=== PATIENT | female | born 1975 | race American Indian/Alaskan Native ===

== ENCOUNTER 2016-11-03 00:13 | Emergency (ER) | payer MEDICAID ==
[2016-11-03 01:18] VITALS: BP 101/62
[2016-11-03 01:50] LABS: Basophils % (Auto) 0.1 % (0.0-1.8); Eosinophils % (Auto) 0.9 % (0.0-4.3); Hematocrit 37.9 % (30.3-42.9); Hemoglobin 12.3 gm/dl (10.1-14.3); Mean Corpuscular HGB Conc 33 % (30-34); Mean Corpuscular Hemoglobin 26 pg (28-32); Mean Corpuscular Volume 81 fl (79-97); Platelet Count 156 K/mm3 (140-440); Red Blood Count 4.67 M/mm3 (3.65-5.03); Red Cell Distribution Width 13.9 % (13.2-15.2); White Blood Count 10.3 K/mm3 (4.5-11.0)
[2016-11-03 01:58] LABS: Anion Gap 18 mmol/L; Blood Urea Nitrogen 8 mg/dL (7-17); Carbon Dioxide 24 mmol/L (22-30); Chloride 98.5 mmol/L (98-107); Glucose 104 mg/dL (65-100); Potassium 4.1 mmol/L (3.6-5.0); Sodium 136 mmol/L (137-145)
[2016-11-03 02:40] LABS: Bacteria,Urine 1+ /HPF (Negative); Bilirubin,Urine NEG (Negative); Blood,Urine NEG (Negative); Ketones,Urine NEG (Negative); Leukocyte Esterase,Urine NEG (Negative); Nitrite,Urine NEG (Negative); Protein,Urine <15 mg/dL mg/dL (Negative); RBC,Urine < 1.0 /HPF (0.0-6.0); Urobilinogen,Urine < 2.0 mg/dL (<2.0); WBC,Urine < 1.0 /HPF (0.0-6.0)
== END 2016-11-03 04:42 | disposition left against medical advice (07) ==
LOC: ED 00:13
DX: R51 Headache (principal); R50.9 Fever, unspecified; Z53.21 Procedure and treatment not carried out due to patient leaving prior to being seen by health care provider
CPT/HCPCS: 36415; 80048; 81001; 81025; 85025

== ENCOUNTER 2017-03-15 08:22 | Day surgery (SDC) | payer MEDICAID ==
[~2017-03-15 08:22] MED LIST: METHERGINE IM ONE; SILVER NITRATE TP ONE
--- NOTE | 2017-03-15 09:20 | Anesthesia Day of Surgery ---
Anesthesia Day of Surgery - Day of Surgery Patient Examined: Yes Patient H&P Reviewed: Yes Patient is NPO: Yes
--- NOTE | 2017-03-15 09:20 | Anesthesia Consultation ---
Anesthesia Consult and Med Hx Date of service: 03/15/17 - Airway Anesthetic Teeth Evaluation: Good ROM Head & Neck: Adequate Mental/Hyoid Distance: Adequate Mallampati Class: Class II Intubation Access Assessment: Probably Good - Pulmonary Exam CTA: Yes - Cardiac Exam Cardiac Exam: RRR - Pre-Operative Health Status ASA Pre-Surgery Classification: ASA2 Proposed Anesthetic Plan: General - Pre-Anesthesia Comment Pre-Anesthesia Comments: Missed at 12 weeks - Pulmonary Hx Smoking: No Hx Asthma: No COPD: No - Cardiovascular System Hx Hypertension: No (gestational) Hx Heart Attack/AMI: No - Central Nervous System Hx Seizures: No CVA: No Hx Psychiatric Problems: No - Endocrine Hx Renal Disease: No Hx Liver Disease: No Hx Hypothyroidism: No Hx Hyperthyroidism: No - Hematic Hx Anemia: No Hx Sickle Cell Disease: No - Other Systems Hx Alcohol Use: No Hx Cancer: No - Additional Comments Anesthesia Medical History Comments: NAC
[2017-03-15] MEDS ORDERED: DIPRIVAN 10 MG/ML IV ONE (09:57)
[2017-03-15] MEDS ORDERED: SUBLIMAZE ONE (09:58)
[2017-03-15] MEDS ORDERED: XYLOCAINE MPF 2% ONE (09:58)
[2017-03-15] MEDS ORDERED: SILVER NITRATE TP ONE ×2 (09:59→10:38)
[2017-03-15] MEDS ORDERED: DECADRON ONE (09:59)
[2017-03-15] MEDS ORDERED: ZOFRAN ONE (09:59)
[2017-03-15] MEDS ORDERED: METHERGINE IM ONE (10:00)
[2017-03-15] MEDS ORDERED: LACTATED RINGERS 1,000 ML IV SCH (10:00)
[2017-03-15] MEDS ORDERED: PEPCID PO NR (10:00)
[2017-03-15] MEDS ORDERED: VERSED IV NR (10:00)
[2017-03-15] MEDS ORDERED: NACL 0.9% IR ONE (10:39)
--- NOTE | 2017-03-15 10:48 | Operative Report ---
Operative Report Operative Report: PREOPERATIVE DIAGNOSIS: Missed . POSTOPERATIVE DIAGNOSIS: Missed . PROCEDURE PERFORMED: Suction, dilation, and curettage. ANESTHESIA: Spinal. SURGEON: Dr. Bisi Yoon MD ESTIMATED BLOOD LOSS: 50 mL. COMPLICATIONS: None. FINDINGS: Products of conception consistent with a 6-week intrauterine . INDICATIONS: The patient is a 42-year-old female at 6 weeks by her last menstrual period and 6 weeks by an ultrasound today in the clinic who presents for scheduled surgery. She had repeat US yesterday verified missed . . No heart tones were visible. Findings were discussed with the patient and options including surgical management via dilation and curettage versus management with misoprostol versus expected management were discussed with the patient. After discussion of these options, the patient opted for a suction, dilation, and curettage. The patient was described to the patient in detail including risks of infection, bleeding, injury to surrounding organs including risk of perforation. Informed consent was obtained prior to proceeding with the procedure. PROCEDURE NOTE: The patient was taken to the operating room where spinal anesthesia was administered without difficulty. The patient was prepped and draped in usual sterile fashion in lithotomy position. A weighted speculum was placed. The anterior lip of the cervix was grasped with a single tooth tenaculum. At this time, a 8-mm suction curettage was advanced into the uterine cavity without difficulty and was used to suction contents of the uterus. Following removal of the products of conception, a sharp curette was advanced into the uterine cavity and was used to scrape the four sanders of the uterus until a gritty texture was noted. At this time, the suction curette was advanced one additional time to suction any remaining products. All instruments were removed. Hemostasis was visualized. The patient was stable at the completion of the procedure. Sponge, lap, and instrument counts were correct.
[2017-03-15] MEDS ORDERED: DILAUDID IV ONE (12:09)
[2017-03-15 13:00] VITALS: BP 106/55
--- NOTE | 2017-03-15 17:35 | Post Anesthesia Evaluation ---
- Post Anesthesia Evaluation Patient Participated: Yes Airway Patent: Yes Stable Respiratory Function: Yes Nausea/Vomiting: No Temp > 96.8F: Yes Pain Manageable: Yes Adequeate Hydration: Yes Anesthesia Complications: No
== END 2017-03-15 12:55 | disposition home or self-care (01) ==
LOC: OR 08:22
PROVIDERS: ATTEND Obstetrics & Gynecology
DX: O02.1 Missed abortion (principal); G43.909 Migraine, unspecified, not intractable, without status migrainosus; Z79.899 Other long term (current) drug therapy; Z86.19 Personal history of other infectious and parasitic diseases
CPT/HCPCS: 59820; 86900; 86901; 88305; J1100; J1170; J2250; J2405; J2590; J2704; J3010; J7120; J2210

== ENCOUNTER 2017-03-25 06:00 | Emergency (ER) | payer MEDICAID ==
[2017-03-25 07:20] LABS: Basophils % (Auto) 0.3 % (0.0-1.8); Eosinophils % (Auto) 2.6 % (0.0-4.3); Hematocrit 35.3 % (30.3-42.9); Hemoglobin 11.4 gm/dl (10.1-14.3); Mean Corpuscular HGB Conc 32 % (30-34); Mean Corpuscular Hemoglobin 27 pg (28-32); Mean Corpuscular Volume 82 fl (79-97); Platelet Count 171 K/mm3 (140-440); Red Blood Count 4.29 M/mm3 (3.65-5.03); Red Cell Distribution Width 13.9 % (13.2-15.2); White Blood Count 5.9 K/mm3 (4.5-11.0)
[2017-03-25 07:36] LABS: Anion Gap 16 mmol/L; BUN/Creatinine Ratio 18.75; Blood Urea Nitrogen 15 mg/dL (7-17); Calcium 8.8 mg/dL (8.4-10.2); Carbon Dioxide 26 mmol/L (22-30); Chloride 101.4 mmol/L (98-107); Glucose 123 mg/dL (65-100); Potassium 3.6 mmol/L (3.6-5.0); Sodium 140 mmol/L (137-145)
--- NOTE | 2017-03-25 08:49 | Emergency Department Report ---
ED Chest Pain HPI - General Chief Complaint: Chest Pain Stated Complaint: CP; DIZZINESS Time Seen by Provider: 03/25/17 08:49 Source: patient, family Mode of arrival: Ambulatory Limitations: No Limitations - History of Present Illness Initial Comments: Patient here reports that she awoken this morning with sudden onset of pain she says she is having an pain to her mid chest area, feels like her head is spinning, chills and nausea. Patient says she had a D&C on 03/14/[address] Bisi Yoon. She said her pain is 10 out of 10 and feels aching pain. Denies any chest trauma. Patient has a history of gestational diabetes, migraine headache and gestational hypertension. She also had miscarriage 1 with 2 normal vaginal delivery. Denies any back or abdominal pain. Denies any urinary burning frequency or urgency. Denies any vomiting or diarrhea. Patient denies any shortness of breath. Denies any swelling to her extremities. Denies any history of cardiac disease. Pain is intermittent. She did not take any rpyr-uve-flzyctf medication for pain. MD Complaint: chest pain, other (nausea, head spinning and chills.) -: This morning Onset: awoke with symptoms Pain Location: epigastric Pain Radiation: none Severity: severe Severity scale (0 -10): 10 Quality: aching Consistency: intermittent Improves With: nothing Worsens With: nothing Context: other (unknown) re: nausea. denies: vomting, diaphoresis, dyspnea, sense of impending doom Other Symptoms: other (nausea, lightheadedness and chills). denies: cough, fever, syncope, rash, acid taste in mouth, leg swelling, palpitations, burping Treatments Prior to Arrival: none Aspirin use within the Past 7 Days: (0) No - Related Data On Oral Contraceptives: No Previous Rx's Medication Instructions Recorded Last Taken Type Ibuprofen [Motrin] 600 mg PO Q8H PRN #30 tablet 03/15/17 Unknown Rx oxyCODONE /ACETAMINOPHEN [Percocet 1 tab PO Q6HR PRN #30 tablet 03/15/17 Unknown Rx 5/325] Promethazine [Phenergan TAB] 25 mg PO Q8HR PRN #15 tab 03/25/17 Unknown Rx Allergies Allergy/AdvReac Type Severity Reaction Status Date / Time No Known Allergies Allergy Verified 03/14/17 10:43 Heart Score - HEART Score History: Slightly suspicious EKG: Non-specific Age: < 45 Risk factors: No known risk factors Troponin: < normal limit HEART Score: 1 - Critical Actions Critical Actions: 0-3 pts:0.9-1.7%risk of adverse cardiac event.Candidate for discharge ED Review of Systems ROS: Stated complaint: CP; DIZZINESS Other details as noted in HPI Comment: All other systems reviewed and negative Constitutional: chills. denies: diaphoresis, fever, malaise, weakness Eyes: denies: eye pain, eye discharge, vision change ENT: denies: ear pain, throat pain, congestion Respiratory: no symptoms reported Cardiovascular: chest pain. denies: palpitations, dyspnea on exertion, edema, syncope, paroxysmal nocturnal dyspnea Gastrointestinal: nausea. denies: abdominal pain, vomiting, diarrhea, constipation, hematemesis, melena, hematochezia Genitourinary: denies: urgency, dysuria, frequency, hematuria, discharge, abnormal menses, dyspareunia Musculoskeletal: denies: back pain, joint swelling, arthralgia, myalgia Skin: denies: rash Neurological: vertigo. denies: headache, weakness, numbness, paresthesias, confusion, abnormal gait Psychiatric: anxiety ED Past Medical Hx - Past Medical History Previous Medical History?: Yes Hx Hypertension: (gestational) Hx Heart Attack/AMI: No Hx Diabetes: Yes (hx gestational diabetes) Hx Deep Vein Thrombosis: No Hx Liver Disease: No Hx Renal Disease: No Hx Sickle Cell Disease: No Hx Headaches / Migraines: Yes (migraines) Hx Seizures: No Hx Asthma: No Hx COPD: No Hx Tuberculosis: No Hx HIV: No Additional medical history: Vaginal delivery X 2, Miscarriage x 1 - Surgical History Past Surgical History?: Yes Additional Surgical History: miscarriage x 1 - Family History Family history: hypertension - Social History Smoking Status: Never Smoker Substance Use Type: None Other Social History: lives with family - Medications Home Medications: Home Medications Medication Instructions Recorded Confirmed Last Taken Type Ibuprofen [Motrin] 600 mg PO Q8H PRN #30 tablet 03/15/17 Unknown Rx oxyCODONE /ACETAMINOPHEN [Percocet 1 tab PO Q6HR PRN #30 tablet 03/15/17 Unknown Rx 5/325] Promethazine [Phenergan TAB] 25 mg PO Q8HR PRN #15 tab 03/25/17 Unknown Rx ED Physical Exam - General Limitations: No Limitations General appearance: alert, in no apparent distress - Head Head exam: Present: atraumatic, normocephalic, normal inspection - Eye Eye exam: Present: normal appearance, PERRL, EOMI. Absent: scleral icterus, conjunctival injection, nystagmus, periorbital swelling, periorbital tenderness Pupils: Present: normal accommodation - ENT ENT exam: Present: normal orophraynx, mucous membranes dry, TM's normal bilaterally, normal external ear exam. Absent: mucous membranes moist - Neck Neck exam: Present: normal inspection, full ROM. Absent: tenderness, meningismus, lymphadenopathy - Respiratory Respiratory exam: Present: normal lung sounds bilaterally. Absent: respiratory distress, wheezes, rales, rhonchi, stridor, chest wall tenderness, accessory muscle use, decreased breath sounds, prolonged expiratory - Cardiovascular Cardiovascular Exam: Present: normal rhythm, tachycardia, normal heart sounds. Absent: systolic murmur, diastolic murmur, JVD, S3, S4 - GI/Abdominal GI/Abdominal exam: Present: soft, normal bowel sounds. Absent: distended, tenderness, guarding, rebound, rigid, hyperactive bowel sounds, hypoactive bowel sounds, organomegaly, mass, bruit, pulsatile mass, hernia - Extremities Exam Extremities exam: Present: normal inspection, full ROM, normal capillary refill. Absent: tenderness, pedal edema, joint swelling, calf tenderness - Back Exam Back exam: Present: normal inspection, full ROM. Absent: tenderness, CVA tenderness (R), CVA tenderness (L), muscle spasm, paraspinal tenderness, vertebral tenderness, rash noted - Neurological Exam Neurological exam: Present: alert, oriented X3, normal gait, reflexes normal. Absent: motor sensory deficit - Expanded Neurological Exam Expanded Neurological exam: Absent: innattentive, memory loss-remote event, memory loss- recent event, ataxia, receptive aphasia, expressive aphasia, total aphasia, tremor, protecting the airway Patient oriented to: Present: person, place, time Speech: Present: fluid speech Cranial nerves: EOM's Intact: Normal, Gag Reflex: Normal, Tongue Deviation: Normal, Nystagmus: Normal, Facial Sensation: Normal Cerebellar function: Romberg: Normal Upper motor neuron: Pronator Drift: Normal, Sensory Extinction: Normal Sensory exam: Upper Extremity Light Touch: Normal, Upper Extremity Temperature: Normal, UE 2 Point Discrimination: Normal, Lower Extremity Light Touch: Normal, Lower Extremity Temperature: Normal, LE 2 Point Discrimination: Normal Motor strength exam: RUE: 5, LUE: 5, RLE: 5, LLE: 5 DTR: bicep (R): 2+, bicep (L): 2+, tricep (R): 2+, tricep (L): 2+, knee (R): 2+ , knee (L): 2+, ankle (R): 2+, ankle (L): 2+ Best Eye Response (Banks): (4) open spontaneously Best Motor Response (Amos): (6) obeys commands Best Verbal Response (Amos): (5) oriented Amos Total: 15 - Psychiatric Psychiatric exam: Present: depressed (from previous miscarriage), anxious. Absent: agitated, flat affect, manic, homicidal ideation, suicidal ideation - Skin Skin exam: Present: warm, dry, intact, normal color. Absent: rash ED Course Vital Signs 03/25/17 06:25 Temperature 98 F Pulse Rate 101 H Respiratory 16 Rate Blood Pressure 135/71 Blood Pressure 135/71 [Left] O2 Sat by Pulse 100 Oximetry Vital Signs 03/25/17 03/25/17 06:25 12:12 Temperature 98 F Pulse Rate 101 H 64 Respiratory 16 16 Rate Blood Pressure 135/71 Blood Pressure 135/71 106/54 [Left] O2 Sat by Pulse 100 100 Oximetry - Reevaluation(s) Reevaluation #1: 03/25/17 11:48 stable throughout ED stay. She given normal saline 1 L and Zofran 4 mg IV with positive relief of nausea. She has no chest pain at present and says she is feeling better and ready to go. Pt was orally challenged in the emergency room and tolerated 2 cups of cranberry juice 03/25/17 11:52 03/25/17 11:52 SHABBIR score - Shabbir Score Age > 65: (0) No Aspirin use within the Past 7 Days: (0) No 3 or more CAD Risk Factors: (0) No 2 or more Angina events in past 24 hrs: (0) No Known CAD with more than 50% Stenosis: (0) No Elevated Cardiac Markers: (0) No ST Deviation Greater than 0.5mm: (0) No SHABBIR Score: 0 ED Medical Decision Making - Lab Data Result diagrams: 03/25/17 06:40 03/25/17 06:40 Lab Results 03/25/17 03/25/17 03/25/17 Range/Units 06:14 06:40 06:40 WBC 5.9 (4.5-11.0) K/mm3 RBC 4.29 (3.65-5.03) M/mm3 Hgb 11.4 (10.1-14.3) gm/dl Hct 35.3 (30.3-42.9) % MCV 82 (79-97) fl MCH 27 L (28-32) pg MCHC 32 (30-34) % RDW 13.9 (13.2-15.2) % Plt Count 171 (140-440) K/mm3 Lymph % (Auto) 39.2 H (13.4-35.0) % [place] % (Auto) 8.6 H (0.0-7.3) % Eos % (Auto) 2.6 (0.0-4.3) % Baso % (Auto) 0.3 (0.0-1.8) % Lymph # 2.3 (1.2-5.4) K/mm3 [place] # 0.5 (0.0-0.8) K/mm3 Eos # 0.2 (0.0-0.4) K/mm3 Baso # 0.0 (0.0-0.1) K/mm3 Seg Neutrophils % 49.3 (40.0-70.0) % Seg Neutrophils # 2.9 (1.8-7.7) K/mm3 Sodium 140 (137-145) mmol/L Potassium 3.6 (3.6-5.0) mmol/L Chloride 101.4 (98-107) mmol/L Carbon Dioxide 26 (22-30) mmol/L Anion Gap 16 mmol/L BUN 15 (7-17) mg/dL Creatinine 0.8 (0.7-1.2) mg/dL Estimated GFR > 60 ml/min BUN/Creatinine Ratio 18.75 % Glucose 123 H (65-100) mg/dL POC Glucose 116 H (70-105) Calcium 8.8 (8.4-10.2) mg/dL Troponin T < 0.010 (0.00-0.029) ng/mL HCG, Qual (Negative) HCG, Quant (0-4) mIU/mL Urine Color (Yellow) Urine Turbidity (Clear) Urine pH (5.0-7.0) Ur Specific [place] (1.003-1.030) Urine Protein (Negative) mg/dL Urine Glucose (UA) (Negative) mg/dL Urine Ketones (Negative) mg/dL Urine Blood (Negative) Urine Nitrite (Negative) Urine Bilirubin (Negative) Urine Urobilinogen (<2.0) mg/dL Ur Leukocyte Esterase (Negative) Urine WBC (Auto) (0.0-6.0) /HPF Urine RBC (Auto) (0.0-6.0) /HPF U Epithel Cells (Auto) (0-13.0) /HPF 03/25/17 03/25/17 03/25/17 Range/Units 06:40 Unknown Unknown WBC (4.5-11.0) K/mm3 RBC (3.65-5.03) M/mm3 Hgb (10.1-14.3) gm/dl Hct (30.3-42.9) % MCV (79-97) fl MCH (28-32) pg MCHC (30-34) % RDW (13.2-15.2) % Plt Count (140-440) K/mm3 Lymph % (Auto) (13.4-35.0) % [place] % (Auto) (0.0-7.3) % Eos % (Auto) (0.0-4.3) % Baso % (Auto) (0.0-1.8) % Lymph # (1.2-5.4) K/mm3 [place] # (0.0-0.8) K/mm3 Eos # (0.0-0.4) K/mm3 Baso # (0.0-0.1) K/mm3 Seg Neutrophils % (40.0-70.0) % Seg Neutrophils # (1.8-7.7) K/mm3 Sodium (137-145) mmol/L Potassium (3.6-5.0) mmol/L Chloride (98-107) mmol/L Carbon Dioxide (22-30) mmol/L Anion Gap mmol/L BUN (7-17) mg/dL Creatinine (0.7-1.2) mg/dL Estimated GFR ml/min BUN/Creatinine Ratio % Glucose (65-100) mg/dL POC Glucose (70-105) Calcium (8.4-10.2) mg/dL Troponin T < 0.010 (0.00-0.029) ng/mL HCG, Qual Positive (Negative) HCG, Quant (0-4) mIU/mL Urine Color Yellow (Yellow) Urine Turbidity Clear (Clear) Urine pH 7.0 (5.0-7.0) Ur Specific [place] 1.011 (1.003-1.030) Urine Protein <15 mg/dl (Negative) mg/dL Urine Glucose (UA) Neg (Negative) mg/dL Urine Ketones Neg (Negative) mg/dL Urine Blood Neg (Negative) Urine Nitrite Neg (Negative) Urine Bilirubin Neg (Negative) Urine Urobilinogen < 2.0 (<2.0) mg/dL Ur Leukocyte Esterase Neg (Negative) Urine WBC (Auto) < 1.0 (0.0-6.0) /HPF Urine RBC (Auto) 1.0 (0.0-6.0) /HPF U Epithel Cells (Auto) 5.0 (0-13.0) /HPF 03/25/17 Range/Units Unknown WBC (4.5-11.0) K/mm3 RBC (3.65-5.03) M/mm3 Hgb (10.1-14.3) gm/dl Hct (30.3-42.9) % MCV (79-97) fl MCH (28-32) pg MCHC (30-34) % RDW (13.2-15.2) % Plt Count (140-440) K/mm3 Lymph % (Auto) (13.4-35.0) % [place] % (Auto) (0.0-7.3) % Eos % (Auto) (0.0-4.3) % Baso % (Auto) (0.0-1.8) % Lymph # (1.2-5.4) K/mm3 [place] # (0.0-0.8) K/mm3 Eos # (0.0-0.4) K/mm3 Baso # (0.0-0.1) K/mm3 Seg Neutrophils % (40.0-70.0) % Seg Neutrophils # (1.8-7.7) K/mm3 Sodium (137-145) mmol/L Potassium (3.6-5.0) mmol/L Chloride (98-107) mmol/L Carbon Dioxide (22-30) mmol/L Anion Gap mmol/L BUN (7-17) mg/dL Creatinine (0.7-1.2) mg/dL Estimated GFR ml/min BUN/Creatinine Ratio % Glucose (65-100) mg/dL POC Glucose (70-105) Calcium (8.4-10.2) mg/dL Troponin T (0.00-0.029) ng/mL HCG, Qual (Negative) HCG, Quant 11.99 H (0-4) mIU/mL Urine Color (Yellow) Urine Turbidity (Clear) Urine pH (5.0-7.0) Ur Specific [place] (1.003-1.030) Urine Protein (Negative) mg/dL Urine Glucose (UA) (Negative) mg/dL Urine Ketones (Negative) mg/dL Urine Blood (Negative) Urine Nitrite (Negative) Urine Bilirubin (Negative) Urine Urobilinogen (<2.0) mg/dL Ur Leukocyte Esterase (Negative) Urine WBC (Auto) (0.0-6.0) /HPF Urine RBC (Auto) (0.0-6.0) /HPF U Epithel Cells (Auto) (0-13.0) /HPF - EKG Data -: EKG Interpreted by Me (Attending) Rate: tachycardia - EKG Data When compared to previous EKG there are: no significant change (09/12/2012) Interpretation: no acute changes, nonspecific ST-T wave christine (ST @ 104) - Radiology Data Radiology results: report reviewed Chest x-ray revealed no acute findings. - Medical Decision Making ED course: Pt here complaining of mid chest pain that feels achy without any history of heart disease. Her cardiac score is low and SHABBIR score is at 0. GEN had a D&C 10 days ago that was done by Dr. Bisi Yoon and a test qualitative came back positive quantitative is at 11. Patient test is positive because of recent . She said her was at 12 weeks. She denies any vaginal bleeding or discharge. Denies any abdominal pain or back pain. Denies any urinary burning frequency or urgency. Is still positive due to lingering hormone from recent with miscarriage and D&C. Patient had CBC done which was normal, test positive, quantitative hCG at 11. BMP is stable. Urinalysis is negative for any infection. Patient given 1 L of IV fluid and 4 mg of Zofran. Upon reevaluation, patient says she is feeling better. She has no nausea, no chest pain and no dizziness. I discussed the patient and her lab results, diagnosis and treatment plan and she is in agreement and voice understanding. Patient to follow-up with her [employer] [facility] in the next 1-2 days and I instructed her to call to schedule an appointment. Patient also with anxiety due to recent loss of . She denies any depression or any suicidal or homicidal ideation. Patient will follow up with her primary care physician and her [employer] [facility] and will call tomorrow to schedule an appointment. Her EKG revealed that she had sinus tachycardia at [address] abnormality when compared to EKG in 2013. No significant changes. 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 Patient discharged home a prescription for Phenergan and Motrin. Patient with diagnosis of atypical chest pain, nausea alone in adult, recent history miscarriage and D&C with positive hCG which is the result of recent ., dizziness which has resolved. Critical care attestation.: If time is entered above; I have spent that time in minutes in the direct care of this critically ill patient, excluding procedure time. ED Disposition Clinical Impression: Atypical chest pain, Nausea alone, Dizziness, H/O demise, not currently , Anxiety disorder due to medical condition Disposition: DC-01 TO HOME OR SELFCARE Is pt being admited?: No Does the pt Need Aspirin: No Condition: Stable Instructions: Chest Pain (ED), Dizziness (ED), Acute Nausea and Vomiting (ED) Additional Instructions: Please follow-up with your [facility] [facility] in 1-2 days call to schedule an appointment. Her hormone is still elevated because you had recent with miscarriage and D&C. This is not abnormal. Please follow-up with cardiology regarding chest pain Follow up with primary care physician and one to 2 days. You can take Phenergan for nausea but please do not drive or operate heavy machinery while doing this that this medication causes drowsiness If your symptoms return, please return to the emergency room [facility] otherwise follow-up with primary care doctor increase her fluid intake to 2-3 L of fluid per day. Prescriptions: Promethazine [Phenergan TAB] 25 mg PO Q8HR PRN #15 tab PRN Reason: Nausea Referrals: PRIMARY CARE, [Primary Care Provider] - 03/27/17 TONIO NAIR MD [Staff Physician] - 03/27/17 Forms: Work/School Release Form(ED), Accompanied Note
[2017-03-25] MEDS ORDERED: ZOFRAN IV ONE (08:55)
[2017-03-25] MEDS ORDERED: NACL 0.9% 1000 ML 1,000 ML IV ONE (08:55)
--- NOTE | 2017-03-25 10:05 | XRay Report ---
ROUTINE CHEST, TWO VIEWS: HISTORY: chest pain. The trachea, heart, mediastinal contour, lung bueno and bony thorax are unremarkable. IMPRESSION: Unremarkable chest x-ray.
[2017-03-25 10:15] LABS: Bilirubin,Urine NEG (Negative); Blood,Urine NEG (Negative); Ketones,Urine NEG (Negative); Leukocyte Esterase,Urine NEG (Negative); Nitrite,Urine NEG (Negative); Protein,Urine <15 mg/dL mg/dL (Negative); Urobilinogen,Urine < 2.0 mg/dL (<2.0); WBC,Urine < 1.0 /HPF (0.0-6.0)
[2017-03-25 12:12] VITALS: BP 106/54
== END 2017-03-25 12:18 | disposition home or self-care (01) ==
LOC: ED 06:00
DX: R07.89 Other chest pain (principal); R11.0 Nausea; R42 Dizziness and giddiness; F41.9 Anxiety disorder, unspecified; G43.909 Migraine, unspecified, not intractable, without status migrainosus
CPT/HCPCS: 36415; 71020; 80048; 81001; 82962; 84484; 84702; 84703; 85025; 93005; 93010; 96361; 96374; 99284; J2405; J7030

== ENCOUNTER 2018-01-31 12:21 | Inpatient (IN) | payer MEDICAID ==
[2018-01-31] MEDS ORDERED: ZOFRAN IV PRN (12:30)
[2018-01-31] MEDS ORDERED: XYLOCAINE 2% INFILTRATI ONE (12:30)
[2018-01-31] MEDS ORDERED: BRETHINE SUB-Q PRN (12:30)
[2018-01-31] MEDS ORDERED: MINERAL OIL PO PRN (12:30)
[2018-01-31] MEDS ORDERED: ePHEDrine SULFATE IV PRN (12:30)
--- NOTE | 2018-01-31 12:52 | History and Physical Report ---
History of Present Illness Date of examination: 01/31/18 (Pt presents with PROM clear fluid) Date of admission: 01/31/18 12:21 Chief complaint: leaking fluid all morning History of present illness: EDC Confirmation: 02/24/2018 Gestational Age: 16 4/7 weeks Past History : 6 Term Births: 3 Living Children: 3 Para: 3 Spont. Ab: 2 # 1 Delivery date: 02/18/1998 Weeks Gestation: 40 Delivery type: Delivery location: [facility] Sex: Male weight: 3.5kg # 2 Delivery date: 09/04/2010 Weeks Gestation: 40 Delivery type: Delivery location: [facility] Sex: Female weight: 7.5lbs # 3 Delivery date: 11/08/2013 Weeks Gestation: 40 Delivery type: Delivery location: [facility] Infant Sex: Female weight: 8lbs # 4 Delivery date: 09/2016 Weeks Gestation: 12 Delivery type: SAB # 5 Delivery date: 06/2017 Delivery type: SAB Family History Summary: Father (biol.) - Has Family History of Diabetes - Entered On: 09/13/2017 Social History: Patient is single Smoking History: Patient has never smoked. Risk Factors: Smoked Tobacco Use: Never smoker Smokeless Tobacco Use: Never Passive smoke exposure: no Drug use: no HIV high-risk behavior: no Alcohol use: no Exercise: no Seatbelt use: 100 % Family History Risk Factors: Family History of CT in females < 65 years old: no Dietary Counseling: pn yes Past Medical History: Headaches(Migraines); only taking tylenol. Past Surgical History: negative Past Medical History Anesthesia Complications: negative Anemia: negative Autoimmune Disorder: negative Bleeding Disorder: negative Blood Transfusions: negative Breast Disease: negative Diabetes: negative Heart Disease: negative Hypertension: negative Hepatitis/Liver Disease: negative Kidney Disease/UTI: negative Neurologic/Epilepsy/Migraines: negative Phlebitis/Varicosities: negative Psychiatric: negative Pulmonary Disease/Asthma: negative Thyroid Disease: negative Hospitalizations: negative Surgery (Non-renal case manager): negative Abnormal PAP: negative YEVGENIY Exposure: negative Infertility: negative Uterine Anomaly: negative Uterine Surgery (not C/S): negative Other Gynecologic Problems: negative Social Hx: Patient is single Smoking History: Patient has never smoked. Infection History Hx of STD: none HIV Risk Eval: no Personal hx. of genital herpes: no Varicella/Chicken Pox Status: Immunized TB Risk: no Genetic History ADVANCED MATERNAL AGE Congenital Heart Defect: Mom: no Dad: unknown Angel Disease: Mom: no Dad: unknown Thalassemia Mom: no Dad: unknown Neural Tube Defect Mom: no Dad: unknown Down's Syndrome Mom: no Dad: unknown Mika-Sachs Mom: no Dad: unknown Sickle Cell Disease/Trait Mom: no Dad: unknown Hemophilia Mom: no Dad: unknown Muscular Dystrophy Mom: no Dad: unknown Cystic Fibrosis Mom: no Dad: unknown Kylee Chorea Mom: no Dad: unknown Mental Retardation Mom: no Dad: unknown Fragile X Mom: no Dad: unknown Other Genetic/Chromosomal Disorder Mom: no Dad: unknown Child w/other defect Mom: no Dad: unknown Enviromental Exposures Xray Exposure: no Medication, drug, or alcohol use since LMP: no Chemical/Other Exposure: no Exposure to Cat Liter: no Hx of Parvovirus (Fifth Disease): no Occupational Exposure to Children: none FALSECurrent Allergies: No known allergies Past History - Obstetrical History Expected Date of Delivery: 02/24/18 Actual Gestation: 36 Week(s) 4 Day(s) : 6 Para: 3 Hx # Term Pregnancies: 3 Number of Pregnancies: 0 Spontaneous Abortions: 2 Induced : 0 Number of Living Children: 3 Medications and Allergies Allergies Allergy/AdvReac Type Severity Reaction Status Date / Time No Known Allergies Allergy Verified 03/14/17 10:43 Home Medications Medication Instructions Recorded Confirmed Last Taken Type Ibuprofen [Motrin] 600 mg PO Q8H PRN #30 tablet 03/15/17 Unknown Rx oxyCODONE /ACETAMINOPHEN [Percocet 1 tab PO Q6HR PRN #30 tablet 03/15/17 Unknown Rx 5/325] Promethazine [Phenergan TAB] 25 mg PO Q8HR PRN #15 tab 03/25/17 Unknown Rx Active Meds: Active Medications Ephedrine Sulfate (Ephedrine Sulfate) 10 mg IV Q2M PRN PRN Reason: Hypotension Fentanyl (Sublimaze) 100 mcg IV Q2H PRN PRN Reason: Labor Pain Lactated Ringer's (Lactated Ringers) 1,000 mls @ 125 mls/hr IV DIRECT HARI Oxytocin/Sodium Chloride (Pitocin/Ns 20 Unit/1000ml Drip) 20 units in 1,000 mls @ 125 mls/hr IV DIRECT HARI Oxytocin/Sodium Chloride (Pitocin/Ns 30 Unit/500ml) 30 units in 500 mls @ 4 mls /hr IV Q30MIN HARI; Protocol Lidocaine (Xylocaine 2%) 20 ml INFILTRATI ONCE ONE Stop: 01/31/18 12:31 Mineral Oil (Mineral Oil) 30 ml PO QHS PRN PRN Reason: Constipation Ondansetron HCl (Zofran) 4 mg IV Q8H PRN PRN Reason: Nausea And Vomiting Terbutaline Sulfate (Brethine) 0.25 mg SUB-Q ONCE PRN PRN Reason: Hyperstimulation/Hypertonicity - Physical Exam Breasts: Positive: deferred Cardiovascular: Regular rate, Normal S1, Normal S2 Lungs: Positive: Normal air movement Abdomen: Positive: normal appearance, soft, normal bowel sounds. Negative: distention, tenderness Genitourinary (Female): Positive: normal perenium, other (grossly ruptured membranes) Vulva: both: normal Vagina: Positive: normal moisture. Negative: discharge Cervix: Negative: lesion, discharge Uterus: Positive: normal size, normal contour Adnexa: both: normal Anus/Rectum: Positive: normal perianal skin, heme negative. Negative: rectal mass, hemorrhoids Extremities: Positive: normal Deep Tendon Reflex Grade: Normal +2 - Obstetrical FHR: category 1 Uterine Contraction Monitor Mode: External Cervical Dilatation: 1 (copious amts of clear fluid noted) Cervical Effacement Percentage: 50 station: -3 Uterine Contraction Pattern: Irregular Uterine Tone Measurement Phase: Resting Uterine Contraction Intensity: Mild Results All other labs normal. GBS negative @ 35 week labs 01-24-18 HBsAg Screen Negative Negative *1 RPR Non Reactive Non Reactive *2 Rubella Antibodies, IgG 4.98 index Immune >0.99 *3 Non-immune <0.90 Equivocal 0.90 - 0.99 Immune >0.99 ABO Grouping A *4 Rh Factor Positive *5 Please note: Prior records for this patient's ABO / Rh type are not available for additional verification. Antibody Screen Negative Negative *6 WBC 8.1 x10E3/uL 3.4-10.8 *7 RBC 3.97 x10E6/uL 3.77-5.28 *8 Hemoglobin [L] 10.6 g/dL 11.1-15.9 *9 Hematocrit [L] 33.0 % 34.0-46.6 *10 MCV 83 fL 79-97 *11 MCH 26.7 pg 26.6-33.0 *12 MCHC 32.1 g/dL 31.5-35.7 *13 RDW 13.7 % 12.3-15.4 *14 Platelets 187 x10E3/uL 150-379 *15 Neutrophils 66 % Not Estab. *16 Lymphs 22 % Not Estab. *17 Monocytes 7 % Not Estab. *18 Eos 2 % Not Estab. *19 Basos 0 % Not Estab. *20 ! Immature Cells <No Reported Value> *21 Neutrophils (Absolute) 5.5 x10E3/uL 1.4-7.0 *22 Lymphs (Absolute) 1.8 x10E3/uL 0.7-3.1 *23 Monocytes(Absolute) 0.5 x10E3/uL 0.1-0.9 *24 Eos (Absolute) 0.1 x10E3/uL 0.0-0.4 *25 Baso (Absolute) 0.0 x10E3/uL 0.0-0.2 *26 ! Immature Granulocytes 3 % Not Estab. *27 ! Immature Grans (Abs) [H] 0.2 x10E3/uL 0.0-0.1 *28 (An elevated percentage of Immature Granulocytes has not been found to be clinically significant as a sole clinical predictor of disease. Does NOT include bands or blast cells. associated physiological leukocytosis may also show increased immature granulocytes without clinical significance.) ! NRBC <No Reported Value> *29 Hematology Comments: <No Reported Value> *30 Tests: (2) Panel 210809 ([id number]) HIV Screen 4th Generation wRfx Non Reactive Non Reactive *31 Tests: (3) HCV Ab w/Rflx to Verification ([id number]) ! HCV Ab <0.1 s/co ratio 0.0-0.9 *32 Tests: (4) Comment: ([id number]) ! Comment: SPRCS *33 Non reactive HCV antibody screen is consistent with no HCV infection, unless recent infection is suspected or other evidence exists to indicate HCV infection. Tests: (5) Urine Culture, Routine ([id number]) Urine Culture, Routine [A] Final report *34 Tests: (6) Result ([id number]) ! Result 1 [A] "Result Below..." *35 RESULT: Enterococcus faecalis Greater than 100,000 colony forming units per mL Assessment and Plan - Patient Problems (1) premature rupture of membranes Onset Date: 01/31/18 Current Visit: Yes Status: Acute Qualifiers: PROM onset of labor timing: unspecified duration between rupture of membranes and onset of labor Qualified Code(s): O42.919 - premature rupture of membranes, unspecified as to length of time between rupture and onset of labor, unspecified trimester Plan to address problem: 42yo @ 36w4d with PROM today large amt clear fluid SVE 1,50,-3, clear fluid continues from vagina. GBS negative Orders in EMR. RN aware to start pitocin. aware of admission
[2018-01-31] MEDS ORDERED: PITOCin/NS 30 UNIT/500ML 30 UNITS/500 ML BAG IV SCH (13:00)
[2018-01-31 14:08] LABS: Hematocrit 30.4 % (30.3-42.9); Mean Corpuscular HGB Conc 33 % (30-34); Mean Corpuscular Hemoglobin 25 pg (28-32); Mean Corpuscular Volume 75 fl (79-97); Platelet Count 175 K/mm3 (140-440); Red Blood Count 4.04 M/mm3 (3.65-5.03); Red Cell Distribution Width 17.8 % (13.2-15.2)
[2018-01-31] MEDS: LACTATED RINGERS 1,000 ML IV SCH ×2 (14:19→20:04)
[2018-01-31] MEDS: SUBLIMAZE IV PRN ×3 (17:28→20:03)
--- NOTE | 2018-01-31 17:30 | Progress Note ---
Assessment and Plan - Patient Problems (1) premature rupture of membranes Onset Date: 01/31/18 Current Visit: Yes Status: Acute Qualifiers: PROM onset of labor timing: unspecified duration between rupture of membranes and onset of labor Qualified Code(s): O42.919 - premature rupture of membranes, unspecified as to length of time between rupture and onset of labor, unspecified trimester Plan to address problem: Pt requests pain medication Fentanyl given SVE 2,70,-1 Internals placed Pit @ 12 mu Continue pit Re-eval as needed. Subjective - Subjective Date of service: 01/31/18 (pt requests pain meds; declines epidural at this time ) Principal diagnosis: IUP 34w6d with PROM; pitocin Interval history: EDC Confirmation: 02/24/2018 Gestational Age: 16 4/7 weeks Past History : 6 Term Births: 3 Living Children: 3 Para: 3 Spont. Ab: 2 # 1 Delivery date: 02/18/1998 Weeks Gestation: 40 Delivery type: Delivery location: [facility] Infant Sex: Male weight: 3.5kg # 2 Delivery date: 09/04/2010 Weeks Gestation: 40 Delivery type: Delivery location: [facility] Sex: Female weight: 7.5lbs # 3 Delivery date: 11/08/2013 Weeks Gestation: 40 Delivery type: Delivery location: [facility] Infant Sex: Female weight: 8lbs # 4 Delivery date: 09/2016 Weeks Gestation: 12 Delivery type: SAB # 5 Delivery date: 06/2017 Delivery type: SAB Family History Summary: Father (biol.) - Has Family History of Diabetes - Entered On: 09/13/2017 Social History: Patient is single Smoking History: Patient has never smoked. Risk Factors: Smoked Tobacco Use: Never smoker Smokeless Tobacco Use: Never Passive smoke exposure: no Drug use: no HIV high-risk behavior: no Alcohol use: no Exercise: no Seatbelt use: 100 % Family History Risk Factors: Family History of UT in females < 65 years old: no Dietary Counseling: pn yes Past Medical History: Headaches(Migraines); only taking tylenol. Past Surgical History: negative Past Medical History Anesthesia Complications: negative Anemia: negative Autoimmune Disorder: negative Bleeding Disorder: negative Blood Transfusions: negative Breast Disease: negative Diabetes: negative Heart Disease: negative Hypertension: negative Hepatitis/Liver Disease: negative Kidney Disease/UTI: negative Neurologic/Epilepsy/Migraines: negative Phlebitis/Varicosities: negative Psychiatric: negative Pulmonary Disease/Asthma: negative Thyroid Disease: negative Hospitalizations: negative Surgery (Non-wood heel flap inserter): negative Abnormal PAP: negative YEVGENIY Exposure: negative Infertility: negative Uterine Anomaly: negative Uterine Surgery (not C/S): negative Other Gynecologic Problems: negative Social Hx: Patient is single Smoking History: Patient has never smoked. Infection History Hx of STD: none HIV Risk Eval: no Personal hx. of genital herpes: no Varicella/Chicken Pox Status: Immunized TB Risk: no Genetic History ADVANCED MATERNAL AGE Congenital Heart Defect: Mom: no Dad: unknown Angel Disease: Mom: no Dad: unknown Thalassemia Mom: no Dad: unknown Neural Tube Defect Mom: no Dad: unknown Down's Syndrome Mom: no Dad: unknown Mika-Sachs Mom: no Dad: unknown Sickle Cell Disease/Trait Mom: no Dad: unknown Hemophilia Mom: no Dad: unknown Muscular Dystrophy Mom: no Dad: unknown Cystic Fibrosis Mom: no Dad: unknown [place] Chorea Mom: no Dad: unknown Mental Retardation Mom: no Dad: unknown Fragile X Mom: no Dad: unknown Other Genetic/Chromosomal Disorder Mom: no Dad: unknown Child w/other defect Mom: no Dad: unknown Enviromental Exposures Xray Exposure: no Medication, drug, or alcohol use since LMP: no Chemical/Other Exposure: no Exposure to Cat Liter: no Hx of Parvovirus (Fifth Disease): no Occupational Exposure to Children: none FALSECurrent Allergies: No known allergies Patient reports: movement normal, contractions Objective - Vital Signs Vital Signs: Vital Signs - 12hr 01/31/18 17:03 Pulse Rate 126 H Blood Pressure 120/73 - Exam Breasts: deferred Lungs: Normal air movement Abdomen: Present: normal appearance, soft. Absent: distention, tenderness Uterus: Present: normal FHR: auscultation normal, category 1 Uterine Contraction Monitor Mode: Internal Cervical Dilatation: 2 (internals placed ) Cervical Effacement Percentage: 70 (lg amt clear fluid cont.) station: -1 Uterine Contraction Pattern: Regular Uterine Tone Measurement Phase: Resting Uterine Contraction Intensity: Moderate Extremities: normal Deep Tendon Reflex Grade: Normal +2 - Labs Labs: Abnormal Labs 01/31/18 13:45 Hgb 10.0 L MCV 75 L MCH 25 L RDW 17.8 H Laboratory Results - last 24 hr 01/31/18 01/31/18 13:45 13:45 WBC 7.7 RBC 4.04 Hgb 10.0 L Hct 30.4 MCV 75 L MCH 25 L MCHC 33 RDW 17.8 H Plt Count 175 Blood Type A POSITIVE Antibody Screen Negative
[2018-01-31] MEDS: PITOCin/NS 20 UNIT/1000ML DRIP 20 UNITS/1,000 ML BAG IV SCH ×2 (20:05→21:19)
[2018-01-31] MEDS ORDERED: METHERGINE IM ONE ×2 (20:18→20:19)
[2018-01-31] MEDS ORDERED: CYTOTEC PR ONE (20:19)
[2018-01-31] MEDS ORDERED: DULCOLAX PR PRN (20:27)
[2018-01-31] MEDS ORDERED: LANSINOH TP PRN (20:27)
[2018-01-31] MEDS ORDERED: BENADRYL PO PRN (20:27)
[2018-01-31] MEDS ORDERED: MILK OF MAGNESIA PO PRN (20:27)
[2018-01-31] MEDS ORDERED: TYLENOL PO PRN (20:27)
[2018-01-31] MEDS ORDERED: PHENERGAN PR PRN (20:27)
[2018-01-31] MEDS ORDERED: TUCKS PAD TP PRN (20:27)
--- NOTE | 2018-01-31 20:50 | Procedure Note ---
OB Delivery Note - Delivery Date of Delivery: 01/31/18 Mailmaster: VIRGINIE BOWDEN Estimated blood loss: 200cc - Vaginal Delivery presentation: vertex Delivery position: OA Intrapartum events: other(please specify) (poly PROM) Delivery induction: none Delivery augmentation: pitocin Delivery monitor: internal FHT, internal uterine Route of delivery: Delivery placenta: manual, adherent, uterine exploration Delivery cord: 3 umbilical vessels Episiotomy: none Delivery laceration: 1st degree (no repair indicated not bleeding) Anesthesia: intravenous Delivery comments: Pt sitting up for epidural and c/o urge to push. SVE 10,100,+1 live born female over intact perineum Baby placed in warmer Temp 96.9 rectal. Placenta manually extracted, 3-4 cm piece remains based on assessment of placenta and uterine exploration. Baby stimulated, crying, skin dark, feet and hands are pink. NICU here to assess baby. 8/9, EBL 200, wgt 7-6. Mom and baby remain LDR stable. Spoke with As long as pt is not bleeding will try to get piece of placenta to pass with uterotonics: pitocin IVFs and methergine IM given. Pt will remain on LDR for several hours - A at 1 minute: 8 at 5 minutes: 9 Gender: Female (wgt 7-11)
[2018-01-31] MEDS ORDERED: SODIUM CHLORIDE FLUSH SYRINGE 10 ML IV NR (21:00)
[2018-01-31] MEDS: MOTRIN PO SCH (22:01)
--- NOTE | 2018-01-31 22:01 | Event Note ---
Date: 01/31/18 (Pt OOB to void) Bleeding noted Exam revealed no placenta tissue ? fibroid. US at bedside , there is an area of complex hyper echogenic that could be a fibroid. FF bleeding mod. Cytotec 800mcg placed TN. Pt is stable Will transfer to M/B in 30 min. made aware.
--- NOTE | 2018-01-31 22:40 | Ultrasound Report ---
FINAL REPORT EXAM: US GUIDE INTRAOPERATIVE HISTORY: bleeding ; retained POC TECHNIQUE: Ultrasound pelvis intraoperative limited PRIORS: None. FINDINGS: There is complex appearance within endometrial canal with multiple hyper and hypoechoic areas some of which appear vascular findings are suspicious for retained products of conception. IMPRESSION: Thickened irregular appearance of the endometrium suspect retained products of conception
[2018-02-01] MEDS: VIBRAMYCIN PO SCH ×3 (00:16→21:23)
[2018-02-01] MEDS: NORCO 5/325 PO PRN ×3 (00:18→21:23)
[2018-02-01] MEDS: MOTRIN PO SCH ×3 (04:33→18:30)
--- NOTE | 2018-02-01 08:07 | Progress Note ---
Assessment and Plan Patient resting this morning with c/o cramping. Fundus firm, lochia small. Patient denies any increase in beeding overnight. post delivery H&H ordered for 0800. She denies s/s anemia. VSSAF. Patient reports w/o concern. Will continue pathway and anticipate d/c home tomorrow if stable. - Patient Problems (1) Spontaneous vaginal delivery Current Visit: Yes Status: Acute Subjective - Subjective Date of service: 02/01/18 Principal diagnosis: day #1 s/p Patient reports: appetite normal, voiding normally, pain well controlled, ambulating normally, no dizzy ambulation, no nauseated [place]: doing well, nursing well Objective - Vital Signs Latest vital signs: Vital Signs Temp Pulse Resp BP BP Pulse Ox 02/01/18 05:33 18 02/01/18 04:33 18 02/01/18 04:00 98.4 F 82 18 121/53 02/01/18 01:18 18 02/01/18 00:18 18 02/01/18 00:03 99.6 F 81 18 135/70 97 01/31/18 23:01 18 01/31/18 22:22 98.1 F 75 18 128/59 01/31/18 22:01 16 01/31/18 22:00 96.5 F L 01/31/18 21:01 88 118/70 01/31/18 20:10 96.9 F L 01/31/18 20:03 18 01/31/18 19:32 85 140/91 01/31/18 19:24 96.3 F L 85 20 140/91 01/31/18 17:40 83 113/79 01/31/18 17:03 126 H 120/73 Intake and Output 01/31/18 02/01/18 02/01/18 23:59 07:59 15:59 Intake Total 802.084 480 Output Total 500 Balance 802.084 -20 Intake: IV 802.084 Lactated Ringers 1,000 ml 647.917 @ 125 mls/hr IV DIRECT HARI Rx#:[id number] PITOCin/NS 20 UNIT/1000ML 154.167 DRIP 20 units In 1,000 ml @ 125 mls/hr IV DIRECT HARI Rx#:[id number] Intake, Free Water 480 Output: Urine 500 Void 500 Other: Total, Output Amount 500 # Voids Void 1 1 Weight 86.183 kg Estimated Blood Loss 200 - Exam Breasts: Present: normal, Cardiovascular: Present: Regular rate Lungs: Present: Clear to auscultation, Normal air movement Abdomen: Present: normal appearance, soft Vulva: both: normal Uterus: Present: normal, firm, fundal height at umbilicus Extremities: Present: normal Deep Tendon Reflex Grade: Normal +2 - Labs Labs: Abnormal lab results 01/31/18 Range/Units 13:45 Hgb 10.0 L (10.1-14.3) gm/dl MCV 75 L (79-97) fl MCH 25 L (28-32) pg RDW 17.8 H (13.2-15.2) %
[2018-02-01 08:19] LABS: Hematocrit 29.5 % (30.3-42.9); Hemoglobin 9.3 gm/dl (10.1-14.3)
[2018-02-01] MEDS ORDERED: BOOSTRIX IM ONE (20:27)
[2018-02-01] MEDS ORDERED: M-M-R II VACCINE SUB-Q ONE (20:27)
[2018-02-02] MEDS: MOTRIN PO SCH ×4 (06:30→12:14)
[2018-02-02] MEDS: NORCO 5/325 PO PRN (06:31)
[2018-02-02 08:24] VITALS: BP 115/55
--- NOTE | 2018-02-02 08:54 | Discharge Summary ---
Providers - Providers Date of Admission: 01/31/18 12:21 Date of discharge: 02/02/18 Attending physician: JERRELL PAVON Primary care physician: JERRELL PAVON Hospitalization Reason for admission: SROM, labor @ 36 weeks Condition: Good Pertinent studies: post delivery H&H 9.3/29.5 (slight drop from 05/07 at admission) Procedures: vaginal w/ manual removal of placenta Hospital course: uncomplicated vaginal and course Disposition: FL-01 TO HOME OR SELFCARE - Discharge Diagnoses (1) Spontaneous vaginal delivery Status: Acute (2) Anemia associated with acute blood loss Status: Acute Core Measure Documentation - Palliative Care Palliative Care/ Comfort Measures: Not Applicable - Core Measures Any of the following diagnoses?: none Exam - Constitutional Vitals: Temp Pulse Resp BP Pulse Ox 98.6 F 76 20 115/55 97 02/02/18 02:00 02/02/18 02:00 02/02/18 02:00 02/02/18 02:00 02/02/18 02:00 General appearance: Present: no acute distress, well-nourished - EENT Eyes: Present: PERRL ENT: hearing intact, clear oral mucosa - Neck Neck: Present: supple, normal ROM - Respiratory Respiratory effort: normal Respiratory: bilateral: CTA - Cardiovascular Heart Sounds: Present: S1 & S2. Absent: rub, click - Extremities Extremities: pulses symmetrical, No edema Peripheral Pulses: within normal limits - Abdominal General gastrointestinal: Present: soft, non-tender, non-distended, normal bowel sounds Female genitourinary: Present: normal - Integumentary Integumentary: Present: clear, warm, dry - Musculoskeletal Musculoskeletal: gait normal, strength equal bilaterally - Psychiatric Psychiatric: appropriate mood/affect, intact judgment & insight - Neurologic Neurologic: CNII-XII intact, moves all extremities - Additional findings Additional findings: fundus firm @U, lochia small, VSSAF, asymptomatic anemia associated w/ acute blood loss at delivery. Plan Activity: no restrictions Follow up with: JERRELL PAVON MD [Primary Care Provider] - 6 Weeks (Congratulations! Please call [phone] to schedule visit in 6 weeks. Call with any questions or concerns. ) Prescriptions: Ibuprofen [Motrin 800 MG tab] 800 mg PO Q8HR PRN #30 tablet PRN Reason: Pain
[2018-02-02] MEDS: VIBRAMYCIN PO SCH (12:01)
== END 2018-02-02 15:00 | disposition home or self-care (01) | DRG 775 ==
LOC: LD 12:21 → OB 22:10
PROVIDERS: ADMIT Obstetrics & Gynecology; ATTEND Obstetrics & Gynecology
PROC: 10E0XZZ Delivery of Products of Conception, External Approach (ICD-10-PCS; principal; 2018-01-31)
PROC: 3E0234Z Introduction of Serum, Toxoid and Vaccine into Muscle, Percutaneous Approach (ICD-10-PCS; 2018-02-01)
DX: O42.913 Preterm premature rupture of membranes, unspecified as to length of time between rupture and onset of labor, third trimester (principal); Z37.0 Single live birth; Z23 Encounter for immunization; O90.81 Anemia of the puerperium; D62 Acute posthemorrhagic anemia; O99.354 Diseases of the nervous system complicating childbirth; G43.909 Migraine, unspecified, not intractable, without status migrainosus; O70.0 First degree perineal laceration during delivery; Z3A.34 34 weeks gestation of pregnancy
CPT/HCPCS: 36415; 76998; 85014; 85018; 85027; 86592; 86850; 86900; 86901; 88305; 88307; 99211; A6250; G0463; J2210; J2590; J3010; J7120

== ENCOUNTER 2018-06-05 08:13 | Day surgery (SDC) | payer MEDICAID ==
[2018-06-05] MEDS ORDERED: LACTATED RINGERS 1,000 ML ONE (09:11)
[2018-06-05] MEDS ORDERED: VERSED ONE (09:11)
[2018-06-05] MEDS ORDERED: LACTATED RINGERS 1,000 ML IV SCH (10:00)
[2018-06-05] MEDS ORDERED: DILAUDID IV PRN (10:25)
[2018-06-05] MEDS ORDERED: ZOFRAN IV PRN (10:25)
--- NOTE | 2018-06-05 10:27 | Anesthesia Day of Surgery ---
Anesthesia Day of Surgery - Day of Surgery Patient Examined: Yes Patient H&P Reviewed: Yes Patient is NPO: Yes
--- NOTE | 2018-06-05 10:28 | Anesthesia Consultation ---
Anesthesia Consult and Med Hx Date of service: 06/05/18 - Airway Anesthetic Teeth Evaluation: Good ROM Head & Neck: Adequate Mental/Hyoid Distance: Adequate Mallampati Class: Class I Intubation Access Assessment: Good - Pulmonary Exam CTA: Yes - Cardiac Exam Cardiac Exam: RRR - Pre-Operative Health Status ASA Pre-Surgery Classification: ASA1 Proposed Anesthetic Plan: General - Pulmonary Hx Smoking: No Hx Asthma: No COPD: No Hx Pneumonia: No - Cardiovascular System Hx Hypertension: (gestational) Hx Heart Attack/AMI: No - Central Nervous System Hx Seizures: No CVA: No Hx Psychiatric Problems: No - Endocrine Hx Renal Disease: No Hx End Stage Renal Disease: No Hx Liver Disease: No Hx Hypothyroidism: No Hx Hyperthyroidism: No - Hematic Hx Anemia: No Hx Sickle Cell Disease: No - Other Systems Hx Alcohol Use: No Hx Cancer: No
[2018-06-05] MEDS ORDERED: ZOFRAN ONE (10:30)
[2018-06-05] MEDS ORDERED: DECADRON ONE (10:30)
[2018-06-05] MEDS ORDERED: TORADOL ONE (10:30)
[2018-06-05] MEDS ORDERED: ZEMURON IV ONE (10:33)
[2018-06-05] MEDS ORDERED: XYLOCAINE MPF 2% ONE (10:33)
[2018-06-05] MEDS ORDERED: SUBLIMAZE ONE ×2 (10:33→12:21)
[2018-06-05] MEDS ORDERED: DIPRIVAN 10 MG/ML IV ONE (10:34)
[2018-06-05] MEDS ORDERED: BLOXIVERZ ONE (10:36)
[2018-06-05] MEDS ORDERED: ROBINUL ONE (10:36)
[2018-06-05] MEDS ORDERED: MARCAINE 0.25% INFILTRATI ONE (10:44)
[2018-06-05] MEDS ORDERED: VERSED IV NR (11:00)
[2018-06-05] MEDS ORDERED: MARCAINE 0.5% INFILTRATI ONE ×2 (11:01→12:14)
[2018-06-05] MEDS ORDERED: NACL 0.9% IR ONE ×2 (12:14→12:15)
[2018-06-05] MEDS ORDERED: PERCOCET 5/325 PO PRN (13:03)
--- NOTE | 2018-06-05 13:37 | Operative Report ---
Operative Report Operative Report: Preoperative diagnosis: Multiparity, desires permanent sterilization. Postoperative diagnosis: same Procedure: Laparoscopic tubal sterilization. Surgeon: Dr. Mcdonald Desk Manager: none Anesthesia: General endotracheal. Complications: 2 mm uterine perforation at the left fundus near the cornua. EBL: < 5 cc IVF: 1 liter of RL Urine: 50 cc by straight cath before the procedure. Intraoperative findings: 1. Globular appearing uterus with a 2 mm perforation at the left fundus near an dilated cornua and mild spotting. 2. Dilated cornua bilaterally. 3. Normal Fallopian tubes and ovaries bilaterally. Procedure details: Risks, benefits, and alternatives of the procedure were discussed in detail with the patient which included but not limited to risk of infection, hemorrhage requiring blood transfusion, uterine perforation, failure of the procedure to prevent which can result in unwanted pregnancies in the future. The patient expressed understanding, her questions answered, and she gave informed consent. The patient was taken to the operating room with an IV fluid infusing Ringer's lactate. In the operating room, she was placed in a dorsal supine position and given general anesthesia. Then, she was placed on the stirrups in a dorsolithotomy position. The perineum, vagina, cervix and abdomen were washed and she was prepared and draped in usual sterile fashion. The bladder was drained with a straight catheter. A bivalve speculum was placed in the vagina and the anterior lip of the cervix was grasped with a single-tooth tenaculum. The cervical os was dilated and A HUMI uterine manipulator was then advanced into the uterine cavity as a means of manipulating the uterus during the procedure. The speculum was then removed from the vagina. Attention was then turned to the patient's abdomen where a 5 mm skin incision was made in the infraumbilical fold using the scalpel. The Veress needle was carefully introduced into the peritoneal cavity at a 45 angle while tenting the abdominal wall. Intraperitoneal placement was confirmed by using a water-filled syringe and by noticing a drop in intra-abdominal pressure with insufflation of CO2 gas. The trocar and sleeve were then advanced without any difficulty into the abdomen where intraperitoneal placement was confirmed using the laparoscope. Pneumoperitoneum was achieved with about 3.5 L of CO2 gas. A second 5 mm skin incision was made in the left lower quadrant using the scalpel and a 5 mm trocar and sleeves were then advanced into the peritoneal cavity under direct visualization with the laparoscope. A quick survey of the anatomy revealed globular-appearing uterus about 8-10 weeks size, an area of perforation with a mild spotting measuring about 2 mm in the left fundal region next to a dilated cornua, otherwise normal fallopian tubes and ovaries bilaterally. The cautery was used to cauterize the area of perforation with no further spotting or bleeding noted. The left fallopian tube was grasp with bipolar forceps, cauterized and transected. A similar procedure was done with the right fallopian tube which was grasped and transected in a similar fashion. Good hemostasis was noted on both sides. The pelvis was irrigated with normal saline and the area of perforation was again inspected and no active bleeding was noticed. The ports were opened to release the CO2 gas from the abdomen and the trochars were then removed. The trocar sites were closed using 3 vicryl sutures with good hemostasis. Sterile dressing was placed. The uterine manipulator was removed. The counts of laps, needles, sponges, and instruments were correct 2. The patient tolerated the procedure well. She was awakened from anesthesia and taken to the recovery room in a stable condition.
[2018-06-05 21:22] VITALS: BP 115/72
== END 2018-06-05 14:20 | disposition home or self-care (01) ==
LOC: OR 08:13
PROVIDERS: ATTEND Obstetrics & Gynecology
DX: Z30.2 Encounter for sterilization (principal); G43.909 Migraine, unspecified, not intractable, without status migrainosus; Z98.890 Other specified postprocedural states; Z83.3 Family history of diabetes mellitus; I10 Essential (primary) hypertension
CPT/HCPCS: 58670; 81025; A4217; J1100; J1885; J2250; J2405; J2704; J2710; J3010; J7120